=== PATIENT | male | born 1955 | race Caucasian/White ===

== ENCOUNTER 2017-02-12 09:59 | Emergency (ER) | payer OTHER ==
[2017-02-12 12:40] LABS: HEMOGLOBIN 15.4 gm/dl (14.0-17.5); RED BLOOD COUNT 5.37 M/UL (4.20-5.50); WHITE BLOOD COUNT 12.4 K/UL (4.5-11.0)
[2017-02-12 12:55] LABS: BUN/CREATININE RATIO 19 (0-10)
== END 2017-02-12 17:43 | disposition home or self-care (01) ==
LOC: ER1 09:59
PROVIDERS: Emergency Medicine
DX: S39.012A Strain of muscle, fascia and tendon of lower back, initial encounter (principal); J90 Pleural effusion, not elsewhere classified; E11.9 Type 2 diabetes mellitus without complications; Z88.5 Allergy status to narcotic agent; Z88.1 Allergy status to other antibiotic agents; Z87.891 Personal history of nicotine dependence; Z79.84 Long term (current) use of oral hypoglycemic drugs; Z79.899 Other long term (current) drug therapy; X50.0XXA Overexertion from strenuous movement or load, initial encounter
CPT/HCPCS: 36415; 71020; 72072; 72100; 80053; 82550; 82553; 83874; 84484; 85025; 85379; 96374; 96375; 99284; J2270; J2405; J7050; Q9963

== ENCOUNTER 2020-10-27 19:23 | Emergency (ER) | payer OTHER ==
[~2020-10-27 19:23] MED LIST: ALDACTONE25 MG PO; AMARYL1 MG PO; AMLODIPINE BESY10 MG PO; ASPIRIN81 MG PO; BACTRIM DS TAB1 EACH PO; CHLORTHALIDONE25 MG PO; GABAPENTIN600 MG PO; HYDRALAZINE HC100 MG PO; LOSARTAN POTAS100 MG PO; METOPROLOL TAR100 MG PO; PERCOCET 5-3251 EACH PO
== END 2020-10-27 19:25 | disposition left against medical advice (07) ==
LOC: ER1 19:23
DX: Z53.21 Procedure and treatment not carried out due to patient leaving prior to being seen by health care provider (principal)